=== PATIENT | female | born 1995 | race Caucasian/White ===

== ENCOUNTER → 2016-08-02 | Outpatient (CLI) | payer OTHER ==
[~2016-08-02] MED LIST: CYCL10TA6 PO; GADAVIST IV PRN; HYDR-5688 PO
--- NOTE | 2016-08-02 13:42 | DIAGNOSTIC IMAGING REPORT ---
MRI OF THE BRAIN WITHOUT AND WITH IV CONTRAST CLINICAL HISTORY: SYNCOPE COMPARISON STUDY: Noncontrast head CT dated 06/07/2014 TECHNIQUE: MRI of the brain was performed from the vertex to the skull base utilizing various T1 and T2 weighted sequences. Following the IV administration of 6 mL of Gadavist contrast, additional enhanced images were obtained. FINDINGS: Sagittal T1, axial diffusion, proton density and T2 weighted axial, coronal FLAIR, and pre and post axial T1-weighted images were acquired. These were supplemented with post gadolinium coronal T1 weighted images. No intra or extra-axial mass lesions are visualized. Axial diffusion-weighted images reveal no evidence of acute or subacute infarction. There is no evidence of ventricular dilatation. Proton density T2-weighted and FLAIR images reveal no significant intraparenchymal signal abnormalities. There are no abnormal flow voids. There is a tiny incidental right posterior parietal developmental venous anomaly. There are no pathologically enhancing masses. IMPRESSION: Tiny incidental right posterior parietal developmental venous anomaly. Otherwise normal study. Electronically signed by: Mack Monroe M.D. 08/02/2016 1:41 PM Dictated Date/Time: 08/02/2016 1:37 PM
== END | disposition home or self-care (01) ==
LOC: C.MRI 12:29
PROVIDERS: ATTEND Internal Medicine
DX: F48.8 Other specified nonpsychotic mental disorders (principal); Q28.3 Other malformations of cerebral vessels

== ENCOUNTER → 2016-08-11 | Outpatient (CLI) | payer OTHER ==
[~2016-08-11] MED LIST changes: -GADAVIST IV PRN
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
== END | disposition home or self-care (01) ==
LOC: C.NEUR 07:55
PROVIDERS: ATTEND Internal Medicine
DX: F48.8 Other specified nonpsychotic mental disorders (principal)

== ENCOUNTER 2016-10-15 10:50 | Emergency (ER) | payer OTHER ==
[~2016-10-15] VITALS: Ht 165.1 cm; Wt 62.6 kg
[2016-10-15 10:53] VITALS: TEMP 36.8; Ht 165.1 cm; Wt 62.6 kg
[2016-10-15] MEDS ORDERED: HYDROCODONE/ACETAMOPHEN 5/325MG TAB PO STA (11:20)
[2016-10-15] MEDS ORDERED: ONDANSETRON 4MG OD TAB PO ONE (11:30)
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
[2016-10-15] MEDS ORDERED: HYDR-5688 PO (12:47)
[2016-10-15] MEDS ORDERED: CYCL10TA6 PO (12:47)
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
[2016-10-15 13:09] VITALS: BP 112/80; PULSE 79; O2SAT 96
== END 2016-10-15 13:10 | disposition home or self-care (01) ==
LOC: C.EDB 10:51 → C.EDD 13:10
DX: R51 Headache (principal); M54.2 Cervicalgia; M79.601 Pain in right arm; V43.51XA Car driver injured in collision with sport utility vehicle in traffic accident, initial encounter; Y93.89 Activity, other specified; Y92.488 Other paved roadways as the place of occurrence of the external cause; F17.200 Nicotine dependence, unspecified, uncomplicated; F41.8 Other specified anxiety disorders

== ENCOUNTER 2017-08-24 12:29 | Emergency (ER) | payer BC, OTHER ==
[~2017-08-24] VITALS: Ht 165.1 cm; Wt 64.1 kg
[2017-08-24 12:36] VITALS: TEMP 36.9; Ht 165.1 cm; Wt 64.1 kg
[2017-08-24] MEDS ORDERED: KETOROLAC TROMETHAMINE 30 MG/ML VIAL IV STA (13:08)
[2017-08-24] MEDS ORDERED: ONDANSETRON INJ 2 MG/ML 2 ML VIAL IV STA (13:08)
[2017-08-24] MEDS ORDERED: ACETAMINOPHEN 500 MG TAB PO STA (13:08)
--- NOTE | 2017-08-24 13:09 | EMERGENCY ROOM VISIT NOTE ---
History Report prepared by Lalit: Alex Koroma Under the Supervision of: Dr. Joss Alvares M.D. First contact with patient: 12:53 Chief Complaint: FEVER Stated Complaint: BREAST PAIN FROM CYST, HOT, FEVERISH History of Present Illness The patient is a 22 year old white female with a past medical history of wisdom teeth extraction and a left breast cyst since 2010 who presents to the ED with a cc of constant and worsening left breast pain beginning this morning that feels like a burning and sharp pain. Positive tightness in her breast, nausea, vomiting, and face redness. Negative recent traumas, drainage, and abdominal pain. She notes that she recently started working out and exercising. Her last menstrual period was the beginning of this month and was normal. She was prescribed antibiotics and meloxicam a couple of days ago. She has an appointment on September 01 to get an ultrasound, and then one on the to have it drained. Source of History: patient Onset: this morning Position: other (left breast ) Quality: burning, sharp Timing: constant, worsening Associated Symptoms: + nausea, + vomiting, No abdominal pain Note: Associated symptoms: tightness in her breast, face redness Review of Systems See HPI for pertinent positives and negatives. A total of ten systems were reviewed and were otherwise negative. Past Medical & Surgical Medical Problems: (1) Abdominal pain (2) Anxiety and depression (3) Arm paresthesia, left (4) Breast pain, left (5) Breast pain, left (6) Contusion of foot (7) Cyst of left breast (8) Dehydration (9) Fever (10) Hand injury (11) Left shoulder strain (12) Left shoulder strain (13) Nipple discharge (14) Nipple infection (15) No significant medical problems (16) Overdose (17) Suicidal ideations (18) Syncope (19) Syncope (20) Urinary frequency (21) Viral URI Surgical Problems: (1) History of wisdom tooth extraction Family History Cancer Diabetes mellitus Seizures Social History Smoking Status: Current Every Day Smoker Alcohol Use: none Drug Use: none Marital Status: single Housing Status: lives with family Occupation Status: employed Current/Historical Medications Scheduled Clindamycin Hcl (Cleocin), 300 MG PO QID Tramadol Hcl (Ultram), 50 MG PO Q8H Scheduled PRN Meloxicam (Mobic), 15 MG PO DAILY PRN for Pain Allergies Coded Allergies: Penicillins (Verified Allergy, Severe, HIVES, 08/24/17) Sulfamethoxazole w/Trimethoprim (Verified Adverse Reaction, Intermediate, vomiting, 08/24/17) Physical Exam Vital Signs Date Time Temp Pulse Resp B/P (MAP) Pulse Ox O2 Delivery O2 Flow Rate FiO2 08/24/17 16:05 73 16 110/61 98 08/24/17 14:11 70 16 107/67 99 Room Air 08/24/17 12:36 36.9 75 20 127/79 100 Room Air Physical Exam GENERAL: Awake, alert, well-appearing, NAD HENT: Normocephalic, atraumatic. EYES: Normal conjunctiva. Sclera non-icteric. PERRL. No anisocoria. NECK: Supple. No nuchal rigidity. FROM. RESPIRATORY: CTAB, no rhonchi, wheezing, crackles CARDIAC: RRR, no MRG ABDOMEN: Soft, NTND, BS+ MSK: Mild reproducible left lateral breast wall tenderness. Mild warmth. No fluctuance or drainage. No LE edema NEURO: GCS 15, CN 2-12 intact, moves all 4s on command SKIN: She has a belly button piercing. No rash or jaundice noted. Medical Decision & Procedures ER Provider Diagnostic Interpretation: Radiology results as stated below per my review and radiologist interpretation: Study: Breast ultrasound HISTORY:. Pain. Edema. FINDINGS: Unremarkable ultrasound evaluation of left breast. No evidence for an ultrasonically detectable abscess or collection. No significant nodularity. IMPRESSION: Negative left breast ultrasound. Given the history provided, diagnostic mammography with potential targeted breast ultrasound is suggested as follow-up. Electronically signed by: Paul Romero M.D. 08/24/2017 2:44 PM Dictated Date/Time: 08/24/2017 2:43 PM Laboratory Results 08/24/17 13:30 Red Blood Count 4.03, Mean Corpuscular Volume 86.4, Mean Corpuscular Hemoglobin 30.0, Mean Corpuscular Hemoglobin Concent 34.8, Mean Platelet Volume 9.7, Neutrophils (%) (Auto) 57.5, Lymphocytes (%) (Auto) 29.5, Monocytes (%) (Auto) 7.6, Eosinophils (%) (Auto) 5.0, Basophils (%) (Auto) 0.4, Neutrophils # (Auto) 2.96, Lymphocytes # (Auto) 1.52, Monocytes # (Auto) 0.39, Eosinophils # (Auto) 0.26, Basophils # (Auto) 0.02 08/24/17 13:30 Test 08/24/17 13:30 White Blood Count 5.15 K/uL (4.8-10.8) Red Blood Count 4.03 M/uL (4.2-5.4) Hemoglobin 12.1 g/dL (12.0-16.0) Hematocrit 34.8 % (37-47) Mean Corpuscular Volume 86.4 fL (80-100) Mean Corpuscular Hemoglobin 30.0 pg (25-34) Mean Corpuscular Hemoglobin Concent 34.8 g/dl (32-36) Platelet Count 168 K/uL (130-400) Mean Platelet Volume 9.7 fL (7.4-10.4) Neutrophils (%) (Auto) 57.5 % Lymphocytes (%) (Auto) 29.5 % Monocytes (%) (Auto) 7.6 % Eosinophils (%) (Auto) 5.0 % Basophils (%) (Auto) 0.4 % Neutrophils # (Auto) 2.96 K/uL (1.4-6.5) Lymphocytes # (Auto) 1.52 K/uL (1.2-3.4) Monocytes # (Auto) 0.39 K/uL (0.11-0.59) Eosinophils # (Auto) 0.26 K/uL (0-0.5) Basophils # (Auto) 0.02 K/uL (0-0.2) RDW Standard Deviation 39.9 fL (36.4-46.3) RDW Coefficient of Variation 12.6 % (11.5-14.5) Immature Granulocyte % (Auto) 0.0 % Immature Granulocyte # (Auto) 0.00 K/uL (0.00-0.02) Anion Gap 3.0 mmol/L (3-11) Est Creatinine Clear Calc Drug Dose 122.2 ml/min Estimated GFR () 146.1 Estimated GFR (Non- 126.0 BUN/Creatinine Ratio 20.4 (10-20) Calcium Level 9.1 mg/dl (8.5-10.1) Laboratory results reviewed by me Medications Administered Medications (Trade) Dose Ordered Sig/Marylin Route Start Time Stop Time Status Last Admin Dose Admin Ketorolac Tromethamine (Toradol Inj) 30 mg NOW STAT IV 08/24/17 13:08 08/24/17 13:09 DC 08/24/17 13:44 30 MG Acetaminophen (Tylenol Tab) 1,000 mg ONE STAT PO 08/24/17 13:08 08/24/17 13:09 DC 08/24/17 13:44 1,000 MG Ondansetron HCl (Zofran Inj) 4 mg NOW STAT IV 08/24/17 13:08 08/24/17 13:09 DC 08/24/17 13:44 4 MG ED Course 1253: The patient was evaluated in room B4. A complete history and physical exam was performed. 1338: I reevaluated the patient, and she states that she was given clindamycin, and she is going to see Xiao Olivera of general Surgery. 1527: I reevaluated the patient. Discussed results and discharge instructions: she verbalized understanding and agreement. The patient is ready for discharge. Medical Decision Nursing notes reviewed. Ancillary studies and prior records reviewed. The patient is a 22 year old white female with a past medical history of wisdom teeth extraction and a left breast cyst since 2010 who presents to the ED with a cc of constant and worsening left breast pain beginning this morning that feels like a burning and sharp pain. Differential diagnosis: Etiologies such as cellulitis, abscess, MRSA infection, DVT, necrotizing fasciitis, dermatitis, drug eruption, as well as others were entertained.. Patient was seen and evaluated the bedside. Patient was complaining some left- sided breast pain. Patient says she was recently seen and evaluated in clinic and did have a pending follow-up ultrasound as well as a general surgeon appointment for a prior history of cyst in the left breast. Patient states that she noticed some burning and redness and warmth. On exam she does have some reproducible mild discomfort may be some scant erythema with mild calor but no fluctuance no masses palpable. Patient had blood work completed and was given pain medication for symptom control. Patient also did have a breast ultrasound to rule out cystic versus abscess. Patient's ultrasound was negative. The patient's blood work is very unremarkable. Patient was told to keep her follow-up appointment. Patient told to continue to take her medications including the clindamycin as prescribed. Patient was deemed suitable for outpatient follow-up and treatment at this time. Patient was given strict follow-up, discharge, and return precautions. All questions were answered. Patient was deemed suitable for outpatient follow-up at this time. Patient agreed with the plan of care and was safely discharged home. Medication Reconcilliation Current Medication List: was personally reviewed by me Blood Pressure Screening Patient's blood pressure: Normal blood pressure Impression Primary Impression: Breast pain Scribe Attestation The scribe's documentation has been prepared under my direction and personally reviewed by me in its entirety. I confirm that the note above accurately reflects all work, treatment, procedures, and medical decision making performed by me. Departure Information Dispostion Home / Self-Care Prescriptions Tramadol Hcl (ULTRAM) 50 Mg Tab 50 MG PO Q8H, #12 TAB PRN PAIN Prov: Joss Alvares M.D. 08/24/17 Referrals Toribio Kelly M.D. (PCP) Forms HOME CARE DOCUMENTATION FORM, IMPORTANT VISIT INFORMATION Patient Instructions Anatomy Breast, My [facility] Additional Instructions Please return to the emergency department if you have worsening or recurrent symptoms not amenable to at-home treatment. Please call for a follow-up appointment with her primary care physician. Please take your medications as prescribed. If you have other concerns and/or complaints please feel free to also call your primary care physician's office or return the ED for further evaluation, management, and treatment. You were found to have an elevated blood pressure today (>120 sytolic or >90 diastolic). Per medicare guidelines, you need to follow up with this blood pressure screening with your Primary Care Physician (PCP). For a new PCP call [phone]. You received narcotic or benzodiazepene medication while in the emergency room today. This is an addictive medication that may cause drowziness as well as constipation. Do not drive, operate heavy machinery, or drink alcohol under the influence of this medication. You may take your meloxicam as prescribed for pain/fever with food unless told by your physician not to take NSAIDs. You may take tylenol 1000 mg every 6 hours as needed for pain/fever unless told by your physician to not take it or have liver problems. You may take meloxicam and tylenol separately or at the same time. If he still have breakthrough pain he may try the tramadol. Please only take after taking your other medications. Please note that this medication may cause you to be sleepy and oversedated. Do not use if you require full attention. Take your medications as prescribed. If taking an antibiotic consider taking a probiotic and/or eating yogurt, but at the least, please take with food as it can cause upset stomach. You have been examined and treated today on an emergency basis only. This is not a substitute for, or an effort to provide, complete comprehensive medical care. It is impossible to recognize and treat all injuries or illnesses in a single emergency department visit. It is therefore important that you follow up closely with [facility], your PCP, and/or your specialist(s). Call as soon as possible for an appointment. Thank you for your time and consideration. I look forward to speaking with you again soon. Please don't hesitate to call us if you have any questions.
[2017-08-24] MEDS ORDERED: CLIN300C2 PO (13:10)
[2017-08-24] MEDS ORDERED: MELO7.5T5 PO (13:10)
[2017-08-24 13:57] LABS: BASO % 0.4 %; BASO ABS # 0.02 K/uL (0-0.2); EOS ABS # 0.26 K/uL (0-0.5); HEMATOCRIT 34.8 % (37-47); HEMOGLOBIN 12.1 g/dL (12.0-16.0); LYMPH % 29.5 %; LYMPH ABS # 1.52 K/uL (1.2-3.4); MEAN CELL VOLUME 86.4 fL (80-100); MEAN CORPUSCULAR HGB CONC 34.8 g/dl (32-36); MEAN PLATELET VOLUME 9.7 fL (7.4-10.4); MONO % 7.6 %; MONO ABS # 0.39 K/uL (0.11-0.59); NEUT % 57.5 %; NEUT ABS # 2.96 K/uL (1.4-6.5); PLATELET COUNT 168 K/uL (130-400); RED CELL DISTRIBUTION WIDTH CV 12.6 % (11.5-14.5); RED CELL DISTRIBUTION WIDTH SD 39.9 fL (36.4-46.3); WHITE BLOOD COUNT 5.15 K/uL (4.8-10.8)
[2017-08-24 14:15] LABS: CALCIUM 9.1 mg/dl (8.5-10.1); CREATININE 0.65 mg/dl (0.60-1.20); POTASSIUM 3.7 mmol/L (3.5-5.1)
--- NOTE | 2017-08-24 14:46 | DIAGNOSTIC IMAGING REPORT ---
Study: Breast ultrasound HISTORY:. Pain. Edema. FINDINGS: Unremarkable ultrasound evaluation of left breast. No evidence for an ultrasonically detectable abscess or collection. No significant nodularity. IMPRESSION: Negative left breast ultrasound. Given the history provided, diagnostic mammography with potential targeted breast ultrasound is suggested as follow-up. Electronically signed by: Paul Romero M.D. 08/24/2017 2:44 PM Dictated Date/Time: 08/24/2017 2:43 PM
[2017-08-24] MEDS ORDERED: TRAM-453 PO (15:51)
[2017-08-24 16:05] VITALS: BP 110/61; PULSE 73; O2SAT 98
== END 2017-08-24 16:05 | disposition home or self-care (01) ==
LOC: C.EDB 12:30
DX: N64.4 Mastodynia (principal); F17.200 Nicotine dependence, unspecified, uncomplicated; Z98.818 Other dental procedure status; Z88.0 Allergy status to penicillin; Z88.2 Allergy status to sulfonamides; Z88.8 Allergy status to other drugs, medicaments and biological substances; Z83.3 Family history of diabetes mellitus; Z82.0 Family history of epilepsy and other diseases of the nervous system